=== PATIENT | male | born 1965 | race Hispanic/Latino ===

== ENCOUNTER 2021-05-11 03:13 | Emergency (ER) | payer OTHER ==
[~2021-05-11] VITALS: Ht 172.7 cm; Wt 144.7 kg
[2021-05-11 03:06] LABS: CREATININE 1.7 mg/dL (0.5-1.5); POTASSIUM 3.8 mmol/L (3.5-5.1)
[2021-05-11 03:11] LABS: ALBUMIN 3.8 g/dL (3.5-5.0); BILIRUBIN,TOTAL 0.2 mg/dL (0.2-1.0); TOTAL PROTEIN, SERUM 9.1 g/dL (6.0-8.3)
[2021-05-11 03:57] LABS: BASOPHILS % (AUTO) 0.6 % (0.0-5.0); EOSINOPHILS % (AUTO) 3.4 % (0.0-8.0); HEMATOCRIT 45.1 % (42-54); LYMPHOCYTES % (AUTO) 18.3 % (21.0-51.0); MEAN CORPUSCULAR HEMOGLOBIN 26.7 pg (27.0-33.0); MEAN CORPUSCULAR HGB CONC 32.2 g/dL (32.0-36.0); MEAN CORPUSCULAR VOLUME 83.1 fL (79-99); MONOCYTES % (AUTO) 9.1 % (3.0-13.0); NEUTROPHILS % (AUTO) 68.2 % (40.0-77.0); PLATELET COUNT (AUTO) 371 K/uL (130-400); RED BLOOD CELL COUNT(AUTO) 5.43 MIL/uL (4.50-6.20); RED CELL DISTRIBUTION WIDTH 14.4 % (11.0-15.5); WHITE BLOOD COUNT (AUTO) 10.5 K/uL (4.8-10.8)
[2021-05-11] MEDS ORDERED: 0.9%NACL 1000ML 1,000 ML IV ONE (04:00)
[2021-05-11 04:16] LABS: APPEARANCE,URINE Clear (CLEAR); BILIRUBIN,URINE Negative (NEGATIVE); COLOR,URINE Yellow (YELLOW); GLUCOSE, URINE (UA) Negative (NEGATIVE); KETONES,URINE Negative (NEGATIVE); LEUKOCYTE ESTERASE ,URINE Trace (NEGATIVE); NITRATE,URINE Negative (NEGATIVE); OCCULT BLOOD,URINE Negative (NEGATIVE); PH,URINE 5.5 (5.0-8.0); PROTEIN,URINE Negative (NEGATIVE); UROBILINOGEN,URINE 0.2 mg/dL (0.2-1.0)
[2021-05-11 04:28] VITALS: BP 146/81
[2021-05-11 04:37] LABS: RBC,URINE 0-1 /HPF (0-1)
[2021-05-11 04:38] LABS: BACTERIA,URINE None Seen /HPF (None Seen); SQUAMOUS EPITHELIAL CELL,UR Rare /HPF (0-2)
== END 2021-05-11 05:33 | disposition home or self-care (01) ==
LOC: EDH 03:13
DX: E86.9 Volume depletion, unspecified (principal); R55 Syncope and collapse
CPT/HCPCS: 36415; 70450; 71045; 80053; 81001; 82948; 84484; 85025; 93005; 96360; 99285; J7030

== ENCOUNTER 2025-02-03 00:45 | Emergency (ER) | payer BC ==
[~2025-02-03] VITALS: Ht 175.3 cm; Wt 131.5 kg
[2025-02-03 00:46] VITALS: TEMP 96.9
[2025-02-03 01:03] LABS: IMMATURE GRANULOCYTE ABSOLUTE 0.02 K/uL (0-1); NUCLEATED RED BLOOD CELLS 0.0 % (0.0-0.19); PLATELET COUNT (AUTO) 227 K/uL (130-400); RED BLOOD CELL COUNT(AUTO) 5.16 MIL/uL (4.50-6.20); RED CELL DISTRIBUTION WIDTH 14.0 % (11.0-15.5); WHITE BLOOD COUNT (AUTO) 9.2 K/uL (4.8-10.8)
[2025-02-03 01:12] LABS: CREATININE 1.7 mg/dL (0.5-1.3); GLOMERULAR FILTR. RATE CALC 46.0 mL/min (>90); GLUCOSE,RANDOM 118.0 mg/dL (70-105); SODIUM SERUM 140.0 mmol/L (136-145); UREA NITROGEN, BLOOD 23.0 mg/dL (7-18)
[2025-02-03 01:16] LABS: ASPARTATE AMINOTRANSFERASE 13.0 U/L (10-37); TOTAL PROTEIN, SERUM 7.4 g/dL (6.0-8.3)
--- NOTE | 2025-02-03 01:27 | HMCIMG ---
EXAM: CR Chest, 1 view CLINICAL HISTORY: Chest pain. COMPARISON: Chest radiograph dated 08/22/2027. FINDINGS: Partially excluded the right CP angle. No large pleural effusions. No pneumothorax. No acute infiltrate. The cardiomediastinal silhouette is within normal limits. No acute osseous abnormality. IMPRESSION: No acute cardiopulmonary process is evident. No interval changes. /[place]
[2025-02-03 01:28] VITALS: BP 163/90; PULSE 85; RESP 18; O2SAT 96
[2025-02-03] MEDS ORDERED: ONDA-243 PO (02:02)
[2025-02-03] MEDS ORDERED: FAMO-136 PO (02:02)
--- NOTE | 2025-02-03 02:02 | ERN ---
General Chief Complaint: Abdominal Pain Stated Complaint: ABD PAIN Time Seen by MD: 00:46 Time Seen by Midlevel: 00:46 Source: patient History of Present Illness Initial Comments The patient is a 59-year-old male presenting to the emergency department for evaluation of midepigastric abdominal pain that started 2 hours prior to arrival. The patient does report eating fast food after the pain starting. Denies any other symptoms at this time. Does report an elevated blood pressure reading at home which concerned him so he decided to report to the ER for further evaluation. Allergies: Coded Allergies: No Known Drug Allergies (Unverified Allergy, Unknown, 05/11/21) Past Medical History Past Medical History: Other Medical History Other: GOUT, CKD Past Surgical History: None Social History Social History: Negative ROS Dictation CONSTITUTIONAL: Negative except for HPI HEAD/FACE: Negative except for HPI EENT: Negative except for HPI RESPIRATORY: Negative except for HPI GASTROINTESTINAL/ABDOMINAL: Negative except for HPI GENITOURINARY: Negative except for HPI MUSCULOSKELETAL: Negative except for HPI INTEGUMENTARY: Negative except for HPI NEUROLOGICAL/PSYCH: Negative except for HPI HEMATOLOGIC/LYMPHATIC: Negative except for HPI All Systems Negative, Except as noted above. 13 point review of systems assessed and all negative except for above. Physical Exam Physical Exam Dictation Vital Signs reviewed General Appearance: Alert, oriented x 3, no acute distress, well developed, nourished. Head and Face: non-traumatic. Eyes: PERRL, pink conjunctivas, eyelid no trauma, anterior chamber with arcus senilis. Ears: Pinnas intact and no signs of trauma or erythema ear canals clear and no discharge TM no erythema Nose: No discharge, no bleeding. Oropharynx: Mouth normal, tongue pink, pharynx clear,no erythema, tonsils no exudates, no abscesses noted, mucous membrane moist Neck: Supple, non-tender, no thyromegaly, no masses, no JVD, no bruits Breast:Deferred Chest:No tenderness, no crepitus, no paradoxical movement, no retractions Lungs:Clear, well-ventilated, symmetric, no rales, no wheezing, no rhonchi, no stridor, good breath sounds bilaterally Heart: Regular rate, regular rhythm, no murmur, no gallops Vascular: no peripheral edema, Abdomen: Soft, positive bowel sounds, nondistended, no guarding, nontender, no rebound, no masses no hepatomegaly, no splenomegaly, no Barbosa's sign, no hernias. Rectal: Deferred Genital: Deferred Neurological: Normal speech, motor function intact, sensory function intact Musculoskeletal: Neck nontender, full range of motion, back nontender, full range of motion, Extremities: nontender, full range of motion Skin: Color pink, dry, no turgor, no rash, no lacerations, no abrasions, no contusions. Lymphatic: Deferred Results Laboratory and Microbiology Lab and Micro Result Laboratory Tests Test 02/03/25 00:58 White Blood Count 9.2 K/uL (4.8-10.8) Red Blood Count 5.16 MIL/uL (4.50-6.20) Hemoglobin 14.5 g/dL (14.0-18.0) Hematocrit 44.2 % (42-54) Mean Corpuscular Volume 85.7 fL (79-99) Mean Corpuscular Hemoglobin 28.1 pg (27.0-33.0) Mean Corpuscular Hemoglobin Concent 32.8 g/dL (32.0-36.0) Red Cell Distribution Width 14.0 % (11.0-15.5) Platelet Count 227 K/uL (130-400) Mean Platelet Volume 9.4 fL (7.5-10.5) Immature Granulocyte % (Auto) 0.2 % (0-1) Neutrophils (%) (Auto) 64.9 % (40.0-77.0) Lymphocytes (%) (Auto) 20.9 % (21.0-51.0) L Monocytes (%) (Auto) 10.4 % (3.0-13.0) Eosinophils (%) (Auto) 3.1 % (0.0-8.0) Basophils (%) (Auto) 0.5 % (0.0-5.0) Neutrophils # (Auto) 6.0 K/uL (1.8-7.7) Lymphocytes # (Auto) 1.9 K/uL (1.0-4.8) Monocytes # (Auto) 1.0 K/uL (0.1-1.0) Eosinophils # (Auto) 0.28 K/uL (0.00-0.70) Basophils # (Auto) 0.05 K/uL (0.00-0.20) Absolute Immature Granulocyte (auto 0.02 K/uL (0-1) Nucleated Red Blood Cells 0.0 % (0.0-0.19) Sodium Level 140 mmol/L (136-145) Potassium Level 4.6 mmol/L (3.5-5.1) Chloride Level 105 mmol/L (101-111) Carbon Dioxide Level 30 mmol/L (21-32) Blood Urea Nitrogen 23 mg/dL (7-18) H Creatinine 1.7 mg/dL (0.5-1.3) H Glomerular Filtration Rate Calc 46 mL/min (>90) Random Glucose 118 mg/dL (70-105) H Total Calcium 8.7 mg/dL (8.5-10.1) Total Bilirubin 0.4 mg/dL (0.2-1.0) Direct Bilirubin 0.1 mg/dL (0.0-0.3) Aspartate Amino Transf (AST/SGOT) 13 U/L (10-37) Alanine Aminotransferase (ALT/SGPT) 21 U/L (12-78) Alkaline Phosphatase 135 U/L (50-136) Troponin I High Sensitivity 6 ng/L (4-75) Total Protein 7.4 g/dL (6.0-8.3) Albumin 3.2 g/dL (3.5-5.0) L Lipase 90 U/L (16-77) H Labs Reviewed?: Yes MDM MDM: The patient is a 59-year-old male presenting to the emergency department for evaluation of midepigastric abdominal pain that started 2 hours prior to arrival. The patient does report eating fast food after the pain starting. Denies any other symptoms at this time. Does report an elevated blood pressure reading at home which concerned him so he decided to report to the ER for further evaluation. On physical examination patient has mild midepigastric abdominal tenderness with no rebound or guarding. Initial vital signs are stable. Patient is afebrile and nontoxic appearing. Abdominal workup was initiated. CBC shows no leukocytosis. Chemistries are stable. Lipase is within normal ranges. Chest x-ray and cardiac enzymes were also obtained. Chest x-ray is negative for any acute cardiopulmonary process. Troponin is negative. EKG shows no ST elevations. I do not believe this is an acute coronary syndrome were cardiac related. Patient was given morphine and Zofran in the emergency department and states his pain has completely resolved. Symptoms most likely related to gastritis we will discharged home with supportive management. Differential diagnosis: Acute gastritis, acute coronary syndrome, pancreatitis There are no social concerns with this patient. Prescription drug management Prescriptions will include: None Medical management and examination interpretation discussions were had by me with other qualified healthcare professionals as indicated for the patient's care. ED Course Orders Procedure Category Date Status Time Cbc With Differential LAB 02/03/25 Complete 00:46 Basic Metabolic Panel LAB 02/03/25 Complete 00:46 Hepatic Function Panel LAB 02/03/25 Complete 00:46 Lipase LAB 02/03/25 Complete 00:46 Urinalysis Profile LAB 02/03/25 Logged 00:46 12 Lead Ekg Tracing- EKG 02/03/25 Logged Technical 00:50 Troponin I High LAB 02/03/25 Complete Sensitivity 00:50 Morphine 2mg Syg PHA 02/03/25 Complete (Morphine 2mg Syg) 01:00 Ondansetron 4mg Inj PHA 02/03/25 Complete (Zofran 4mg Inj) 01:00 Chest 1vw RAD 02/03/25 Resulted 00:52 Hydralazine 20mg Inj PHA 02/03/25 Complete (Apresoline 20mg In 01:00 Current Medications Medications (Trade) Dose Ordered Sig/Janes Route PRN Reason Start Time Stop Time Status Last Admin Dose Admin Hydralazine HCl (APRESOLine 20MG INJ) 10 mg ONCE ONCE IV 02/03/25 01:00 02/03/25 01:01 DC 02/03/25 01:08 Morphine Sulfate (morPHINE 2MG SYG) 2 mg ONCE ONCE IVP 02/03/25 01:00 02/03/25 01:01 DC 02/03/25 01:08 Ondansetron HCl (zoFRAN 4MG INJ) 4 mg ONCE ONCE IVP 02/03/25 01:00 02/03/25 01:01 DC 02/03/25 01:08 Vital Signs Date Time Temp Pulse Resp B/P (MAP) Pulse Ox O2 Delivery O2 Flow Rate FiO2 02/03/25 01:28 85 18 163/90 96 Room Air* 0 21 02/03/25 00:46 97.0 78 16 223/109 99 Room Air DX & DISP Disposition: Discharge Departure Impression: Primary Impression: Gastritis Condition: Stable Scripts Famotidine (Pepcid) 20 Mg Tablet 1 TAB PO BID for 30 Days, #60 TAB 0 Refills Prov: CHIP NASH 02/03/25 Ondansetron (Ondansetron Odt) 4 Mg Tab.rapdis 4 MG PO BID for 7 Days, #14 TAB Prov: CHIP NASH 02/03/25 Referrals: SELF,REFERRAL (PCP) Time of Disposition: 02:01 I have reviewed the case, and I agree with, Diagnosis and Plan I performed the substantive portion of the visit. I have reviewed and personally made and approve the management plan that is documented in the note by myself or the BEST. I acknowledge for responsibility for the patient's management plan. CHIP NASH Feb 03, 2025 02:02
--- NOTE | 2025-02-03 09:37 | EKG ---
[facility] Test Date: 2025-02-03 Test Time: 01:12:34 Pat Name: SHANKAR GREENWOOD Department: [facility] Room: Gender: M [employer]: [id number] : 1965 Requested By: CHIP NASH Order Number: [id number] Reading MD: Camilo Peguero Measurements Intervals Latty Rate: 88 P: 34 CO: 145 QRS: -47 QRSD: 96 T: 35 QT: 376 QTc: 456 Interpretive Statements Sinus rhythm LEFT AXIS DEVIATION Compared to ECG 05/11/2021 03:30:10 Left anterior fascicular block now present Left-axis deviation no longer present Left ventricular hypertrophy no longer present Myocardial infarct finding no longer present Electronically Signed On 02-04-2025 11:04:18 CDT by Camilo Peguero Please click the below link to view image of tracing.
== END 2025-02-03 02:18 | disposition home or self-care (01) ==
LOC: EDH 00:45
DX: K29.70 Gastritis, unspecified, without bleeding (principal); M10.9 Gout, unspecified; N18.9 Chronic kidney disease, unspecified
CPT/HCPCS: 99284; 96374; 96375; 71045; 80076; 84484; 80048; 83690; 85025; 36415; 93005; J2270; J0360; J2405